=== PATIENT | male | born 1995 | race Caucasian/White ===

== ENCOUNTER 2018-03-31 23:12 | Emergency (ER) | payer OTHER ==
[2018-03-31 23:38] VITALS: RESP 18
[2018-04-01] MEDS ORDERED: LABETALOL 5 MG/ML VIAL MDV IVP STA ×2 (01:07→03:14)
[2018-04-01 01:18] LABS: Basophils % (A) 0 %; Eosinophils # (A) 0.1 k/uL (0-0.7); Eosinophils % (A) 1 %; HCT 42.7 % (39.0-53.0); HGB 14.7 gm/dL (13.0-17.5); Lymphocytes # (A) 1.8 k/uL (1.0-4.8); Lymphocytes % (A) 18 %; MCH 28.5 pg (25.0-35.0); MCHC 34.5 g/dL (31.0-37.0); MCV 82.7 fL (80.0-100.0); Mean Platelet Volume 7.9; Monocytes # (A) 0.7 k/uL (0-1.0); Monocytes % (A) 7 %; Neutrophils % (A) 72 %; Platelet Count 230 k/uL (150-450); RBC 5.17 m/uL (4.30-5.90); RDW 12.8 % (11.5-15.5); WBC 9.7 k/uL (3.8-10.6)
[2018-04-01 01:24] LABS: ALT 30 U/L (21-72); AST 24 U/L (17-59); Albumin 4.4 g/dL (3.5-5.0); Alkaline Phosphatase 83 U/L (38-126); Anion Gap 12 mmol/L; Blood Urea Nitrogen 9 mg/dL (9-20); Calcium 9.7 mg/dL (8.4-10.2); Carbon Dioxide 27 mmol/L (22-30); Chloride 103 mmol/L (98-107); Glucose 93 mg/dL (74-99); Potassium 4.3 mmol/L (3.5-5.1); Sodium 142 mmol/L (137-145); Total Bilirubin 0.6 mg/dL (0.2-1.3); Total Protein 7.5 g/dL (6.3-8.2)
[2018-04-01 01:29] LABS: D-Dimer <0.17 mg/L FEU (<0.60); INR 1.1 (<1.2); Prothrombin Time 10.9 sec (9.0-12.0)
[2018-04-01 01:39] LABS: Appearance,Urine Clear (Clear); Bilirubin,Urine Negative (Negative); Blood,Urine Negative (Negative); Color,Urine Light Yellow; Glucose,Urine (UA) Negative (Negative); Ketones,Urine Negative (Negative); Leukocyte Esterase,Urine Negative (Negative); Nitrite,Urine Negative (Negative); PH, Urine 7.5 (5.0-8.0); Protein,Urine Negative (Negative); Specific Gravity,Urine 1.005 (1.001-1.035); Urobilinogen,Urine <2.0 mg/dL (<2.0)
[2018-04-01 01:43] LABS: Creatine Kinase 203 U/L (55-170)
--- NOTE | 2018-04-01 01:54 | XR ---
EXAMINATION TYPE: XR chest 2V DATE OF EXAM: 04/01/2018 COMPARISON: 05/19/2014 HISTORY: Chest pain TECHNIQUE: Frontal and lateral views of the chest are obtained. FINDINGS: Heart and mediastinum are normal. Lungs are clear. Diaphragm is normal. Bony thorax is int act. There are chest leads. IMPRESSION: Normal chest. No change.
[2018-04-01 01:55] LABS: Creatine Kinase MB 1.7 ng/mL (0.0-2.4); Troponin I <0.012 ng/mL (0.000-0.034)
[2018-04-01 01:59] LABS: Amphetamine Screen,Urine Not Detected (NotDetected); Barbiturate Screen,Urine Not Detected (NotDetected); Benzodiazepines Screen,Urine Not Detected (NotDetected); Cocaine Screen,Urine Not Detected (NotDetected); Methadone Screen, Urine Not Detected (NotDetected); Opiate Screen,Urine Not Detected (NotDetected); Oxycodone Screen, Urine Not Detected (NotDetected); Phencyclidine Screen,Urine Not Detected (NotDetected); Tricyclic Antidepressant,Urine Not Detected (NotDetected); Urn Cannabinoid Scrn Not Detected (NotDetected)
[2018-04-01] MEDS ORDERED: KETOROLAC 30 MG/ML 1 ML VIAL IVP STA (02:02)
--- NOTE | 2018-04-01 02:58 | ED ---
Chest Pain HPI - General Chief Complaint: Chest Pain Stated Complaint: Chest pain Time Seen by Provider: 04/01/18 00:35 Source: patient Mode of arrival: ambulatory Limitations: no limitations - History of Present Illness Initial Comments: 22-year-old male patient presented to the emergency department today for evaluation of chest pain with inspiration and swallowing. Patient states this started this morning. Patient denies any shortness of breath with this. Denies any sweats, nausea, dizziness, or weakness. He states he was doing some exercises yesterday including pull-ups and leg raises. States he doesn't generally do this type of physical activity. Patient does have a history of hypertension, diagnosed 4 years ago. States he has not had insurance so he has not had any blood pressure medication. Patient states that he occasionally does get headaches but denies any blurred or double vision. Denies any recent long car rides or travel. Denies any leg pain or swelling. Patient denies any recent rash, fever, chills, cough, congestion, abdominal pain, vomiting, diarrhea, constipation, back pain, numbness, tingling, hematuria, dysuria, urinary urgency, urinary frequency, or any other complaints. - Related Data Previous Rx's Medication Instructions Recorded amLODIPine [Norvasc] 5 mg PO DAILY #30 tab 04/01/18 Allergies Allergy/AdvReac Type Severity Reaction Status Date / Time No Known Allergies Allergy Verified 03/31/18 23:38 Review of Systems ROS Statement: Those systems with pertinent positive or pertinent negative responses have been documented in the HPI. ROS Other: All systems not noted in ROS Statement are negative. EKG Findings - EKG Comments: EKG Findings:: EKG obtained at 2331 shows sinus rhythm with a short KS interval. Ventricular rate is 89, KS interval 110, QRS Duration 98, QT 348, QTC 423. No evidence of ST elevation or depression. Past Medical History Past Medical History: Hypertension History of Any Multi-Drug Resistant Organisms: None Reported Past Surgical History: No Surgical Hx Reported Past Psychological History: No Psychological Hx Reported Smoking Status: Former smoker Past Alcohol Use History: Occasional Past Drug Use History: None Reported General Exam Limitations: no limitations General appearance: alert, in no apparent distress, other (This is a well- developed, well-nourished adult male patient in no acute distress. Vital signs upon presentation are temperature 98.2F, pulse 101, respirations 18, blood pressure 203/132, pulse ox 95% on room air.) Eye exam: Present: normal appearance, PERRL, EOMI. Absent: scleral icterus, conjunctival injection, periorbital swelling ENT exam: Present: normal exam, normal oropharynx, mucous membranes moist Respiratory exam: Present: normal lung sounds bilaterally. Absent: respiratory distress, wheezes, rales, rhonchi, stridor, chest wall tenderness Cardiovascular Exam: Present: normal rhythm, tachycardia, normal heart sounds. Absent: systolic murmur, diastolic murmur, rubs, gallop, clicks GI/Abdominal exam: Present: soft, normal bowel sounds. Absent: distended, tenderness, guarding, rebound, rigid Neurological exam: Present: alert, oriented X3, CN II-XII intact Psychiatric exam: Present: normal affect, normal mood Skin exam: Present: warm, dry, intact, normal color. Absent: rash Course Vital Signs 03/31/18 04/01/18 04/01/18 23:36 00:17 01:06 Temperature 98.2 F Pulse Rate 101 H 82 Pulse Rate [ 88 Electrician Master ] Respiratory 18 18 Rate Blood Pressure 203/132 177/134 O2 Sat by Pulse 95 98 Oximetry 04/01/18 04/01/18 04/01/18 02:18 03:37 04:04 Temperature 97.3 F L Pulse Rate 74 68 75 Pulse Rate [ Electrician Master ] Respiratory 18 18 18 Rate Blood Pressure 161/102 160/113 157/105 O2 Sat by Pulse 98 99 96 Oximetry Chest Pain [facility]:Two-view x-ray of the chest is obtained. Heart and mediastinum are normal. Lungs are clear. Diaphragm is normal. Bony thorax is intact. There are chest leads. Impression by Dr. Manuel shows normal chest with no change. MDM: 22-year-old male patient with past medical history significant for untreated hypertension presented to the emergency department today for complaints of chest pain with deep breathing, swallowing, and yawning. Physical examination is unremarkable. Lungs are clear to auscultation with good air movement. Chest x-ray shows no acute cardiopulmonary process. EKG showed sinus rhythm with a short KS. Labs reviewed and are unremarkable. Patient did have significantly elevated blood pressure while here in the department. He did receive labetalol IV push. We did give an oral dose of Norvasc. I did discuss findings and results with the patient. We did discuss that his chest pain could be related to muscle strain from performing vigorous physical activity the day before. He is instructed to take ibuprofen for pain control. We will give prescription for Norvasc to go home with he is instructed to follow-up with both cardiology and with the [facility] for further evaluation and monitoring of the blood pressure. Return parameters were discussed in detail. He verbalizes understanding and agrees this plan. Disposition Clinical Impression: Hypertension, Chest wall pain Disposition: HOME SELF-CARE Condition: Good Instructions: Hypertension (ED), Chest Wall Pain (ED) Additional Instructions: Follow-up with cardiology as soon as possible. Take blood pressure medication as directed. Return here immediately for any new, worsening, or concerning symptoms. Follow-up with [facility] for futher evaluation in 1-2 days. Prescriptions: amLODIPine [Norvasc] 5 mg PO DAILY #30 tab Is patient prescribed a controlled substance at d/c from ED?: No Referrals: [facility] [Provider Group] - 1-2 days Time of Disposition: 03:58
[2018-04-01] MEDS ORDERED: amLODIPine 5 MG TAB PO STA (03:14)
[2018-04-01 04:05] VITALS: BP 157/105; PULSE 75; TEMP 97.3
== END 2018-04-01 04:05 | disposition home or self-care (01) ==
LOC: EC 23:12
DX: R07.89 Other chest pain (principal); I10 Essential (primary) hypertension; Z87.891 Personal history of nicotine dependence
CPT/HCPCS: 36415; 93005; 85379; 80053; 82550; 82553; 83735; 84484; 85025; 85610; 85730; 81003; 80306; 71046; 99285; 96374; 96375; 96376; J1885

== ENCOUNTER 2023-03-16 12:08 | Emergency (ER) | payer OTHER ==
[2023-03-16 12:37] VITALS: TEMP 98.1
--- NOTE | 2023-03-16 13:59 | ED ---
General Adult HPI - General Chief complaint: Shortness of Breath Stated complaint: Chest Pain SOB Time Seen by Provider: 03/16/23 13:43 Source: patient, RN notes reviewed, old records reviewed Mode of arrival: ambulatory Limitations: no limitations - History of Present Illness Initial comments: Nontoxic-appearing 27-year-old male presents to the emergency room with complaints of shortness of breath with sharp chest pain and increased heart rate that occurred yesterday around 5 PM. Patient states symptoms started upon standing and he became lightheaded and dizzy. States that he did not pass out. Symptoms lasted approximately 20 minutes but the chest pain lasted approximately an hour and was sharp in nature. Denies any diaphoresis. No nausea vomiting or diarrhea. No fevers. States that his fingers did feel tingly and looked pale. Patient does have a history of hypertension and is taking amlodipine and losartan for the past 2 years. Did take his meds yesterday at noon. No recent medication changes. Chest pain is resolved at this time. Patient states stopped vaping recently states is now a nonsmoker. -: days(s) (2) Location: chest Radiation: non-radiation Severity scale (1-10): 0 Consistency: now resolved, other (sharp) Associated Symptoms: chest pain, loss of appetite, shortness of breath, other (lightneaded) Treatments Prior to Arrival: none - Related Data Previous Rx's Medication Instructions Recorded amLODIPine [Norvasc] 5 mg PO DAILY #30 tab 04/01/18 Allergies Allergy/AdvReac Type Severity Reaction Status Date / Time No Known Allergies Allergy Verified 03/31/18 23:38 Review of Systems ROS Statement: Those systems with pertinent positive or pertinent negative responses have been documented in the HPI. ROS Other: All systems not noted in ROS Statement are negative. Past Medical History Past Medical History: Hypertension History of Any Multi-Drug Resistant Organisms: None Reported Past Surgical History: No Surgical Hx Reported Past Psychological History: No Psychological Hx Reported Smoking Status: Former smoker Past Alcohol Use History: Occasional Past Drug Use History: None Reported General Exam Limitations: no limitations General appearance: alert, in no apparent distress Head exam: Present: atraumatic Eye exam: Present: normal appearance. Absent: scleral icterus, conjunctival injection, periorbital swelling ENT exam: Present: mucous membranes moist Neck exam: Present: full ROM. Absent: tenderness, meningismus Respiratory exam: Present: normal lung sounds bilaterally. Absent: respiratory distress, accessory muscle use Cardiovascular Exam: Present: tachycardia GI/Abdominal exam: Present: soft Extremities exam: Present: normal capillary refill. Absent: tenderness, pedal edema Back exam: Present: normal inspection. Absent: tenderness, CVA tenderness (R), CVA tenderness (L), paraspinal tenderness, vertebral tenderness, rash noted Neurological exam: Present: alert, oriented X3 Psychiatric exam: Present: normal affect, normal mood Skin exam: Present: warm, dry, normal color. Absent: cyanosis, diaphoretic, petechiae, pallor, mottled Course Vital Signs 03/16/23 03/16/23 03/16/23 12:34 13:46 13:59 Temperature 98.1 F Pulse Rate 105 H 89 Pulse Rate [ 89 Printing Machine Operator Tape Rules ] Respiratory 18 20 Rate Blood Pressure 160/79 147/92 Blood Pressure [Right Arm Sitting] Blood Pressure [Right Arm Standing] Blood Pressure [Right Arm Supine] O2 Sat by Pulse 100 100 Oximetry 03/16/23 03/16/23 03/16/23 14:00 14:02 14:04 Temperature Pulse Rate Pulse Rate [ 96 98 105 H Printing Machine Operator Tape Rules ] Respiratory 16 17 18 Rate Blood Pressure Blood Pressure 141/91 [Right Arm Sitting] Blood Pressure 131/100 [Right Arm Standing] Blood Pressure 136/87 [Right Arm Supine] O2 Sat by Pulse 100 100 100 Oximetry 03/16/23 15:45 Temperature Pulse Rate 104 H Pulse Rate [ Printing Machine Operator Tape Rules ] Respiratory 18 Rate Blood Pressure 147/95 Blood Pressure [Right Arm Sitting] Blood Pressure [Right Arm Standing] Blood Pressure [Right Arm Supine] O2 Sat by Pulse 100 Oximetry EKG Findings - EKG Results: EKG: interpreted by ERMD, sinus rhythm (EKG interpreted by me shows sinus rhythm with a ventricular rate of 91, AZ interval 0.113, QRS 0.102, QTC 0.388, normal axis) Medical Decision Making - Medical Decision Making Was pt. sent in by a medical professional or institution (, PA, HUMAN FACTORS ERGONOMIST, urgent care, hospital, or fdc...) When possible be specific @ -No Did you speak to anyone other than the patient for history (EMS, parent, family, police, friend...)? What history was obtained from this source @ -No Did you review nursing and triage notes (agree or disagree)? Why? @ -I reviewed and agree with nursing and triage notes Were old charts reviewed (outside hosp., previous admission, EMS record, old EKG, old radiological studies, urgent care reports/EKG's, fdc records)? Report findings @ -No old charts were reviewed Differential Diagnosis (chest pain, altered mental status, abdominal pain women, abdominal pain men, vaginal bleeding, weakness, fever, dyspnea, syncope, hea dache, dizziness, GI bleed, back pain, seizure, CVA, palpatations, mental health, musculoskeletal)? @ -Differential Chest Pain: Stable Angina, Unstable Angina, STEMI, NSTEMI Aortic Dissection, Pneumothorax, Musculoskeletal, Esophageal Spasm GERD, Cholecystitis, Pancreatitis, Zoster, this is not meant to be an all-inclusive list. EKG interpreted by me (3pts min.). @ -yes EKG interpreted by me shows sinus rhythm with a ventricular rate of 91, AZ interval 0.113, QRS 0.102, QTC 0.388, normal axis X-rays interpreted by me (1pt min.). @ -Chest x-ray interpreted by me shows no evidence of focal consolidation. No free air. Cardiac silhouette within normal size. CT interpreted by me (1pt min.). @ -None done U/S interpreted by me (1pt. min.). @ -None done What testing was considered but not performed or refused? (CT, X-rays, U/S, labs)? Why? @ -None What meds were considered but not given or refused? Why? @ -None Did you discuss the management of the patient with other professionals (professionals i.e. , PA, HUMAN FACTORS ERGONOMIST, lab, RT, psych nurse, child welfare social worker, cytotechnologist/histotechnologist, teacher, learning officer, wrapper caser)? Give summary @ -No Was smoking cessation discussed for >3mins.? @ -No Was critical care preformed (if so, how long)? @ -No Were there social determinants of health that impacted care today? How? (Homelessness, low income, unemployed, alcoholism, drug addiction, transportation, low edu. Level, literacy, decrease access to med. care, fpc, rehab)? @ -No Was there de-escalation of care discussed even if they declined (Discuss DNR or withdrawal of care, Hospice)? DNR status @ -No What co-morbidities impacted this encounter? (DM, HTN, Smoking, COPD, CAD, Cancer, CVA, ARF, Chemo, Hep., AIDS, mental health diagnosis, sleep apnea, morbid obesity)? @ -Hypertension Was patient admitted / discharged? Hospital course, mention meds given and route, prescriptions, significant lab abnormalities, going to OR and other pertinent info. @ -Discharged Nontoxic-appearing 27-year-old male presents to the emergency room with complaints of shortness of breath with sharp chest pain and increased heart rate that occurred yesterday around 5 PM. Patient states symptoms started upon standing and he became lightheaded and dizzy. States that he did not pass out. Symptoms lasted approximately 20 minutes but the chest pain lasted approximately an hour and was sharp in nature. Denies any diaphoresis. No nausea vomiting or diarrhea. No fevers. States that his fingers did feel tingly and looked pale. Patient does have a history of hypertension and is taking amlodipine and losartan for the past 2 years. Did take his meds yesterday at noon. No recent medication changes. Chest pain is resolved at this time. Patient states stopped vaping recently states is now a nonsmoker. CBC and electrolytes are unremarkable. D-dimer is negative. Troponin -0.012 . Chest x-ray interpreted by me shows no evidence of focal consolidation. No free air. Cardiac silhouette within normal size. Radiologist interpretation no acute process. Orthostatics negative. Patient was given IV fluids and Zofran. Has had no further chest pain, difficulty in breathing or dizziness. Patient is pain-free at this time. Heart score low. Symptoms may be orthostatic in nature as patient says he has had a decreased appetite and decreased fluid intake. He was encouraged to increase his fluid intake and follow-up with his primary care doctor. Return with any new or co ncerning symptoms. He is to this plan of care. Case discussed Dr. Srinivasan. Undiagnosed new problem with uncertain prognosis? @ -No Drug Therapy requiring intensive monitoring for toxicity (Heparin, Nitro, Insulin, Cardizem)? @ -No Were any procedures done? @ -No Diagnosis/symptom? @ -Atypical chest pain Acute, or Chronic, or Acute on Chronic? @ -Acute Uncomplicated (without systemic symptoms) or Complicated (systemic symptoms)? @ -Uncomplicated Side effects of treatment? @ -No Exacerbation, Progression, or Severe Exacerbation? @ -No Poses a threat to life or bodily function? How? (Chest pain, [place], [place], pneumonia, PE, COPD, DKA, ARF, appy, cholecystitis, CVA, Diverticulitis, Homicidal, Suicidal, threat to staff... and all critical care pts) @ -No - Lab Data Result diagrams: 03/16/23 14:01 03/16/23 14:01 Lab Results 03/16/23 03/16/23 03/16/23 Range/Units 14:01 14:01 14:01 WBC 7.6 (3.8-10.6) k/uL RBC 5.67 (4.30-5.90) m/uL Hgb 16.3 (13.0-17.5) gm/dL Hct 47.3 (39.0-53.0) % MCV 83.4 (80.0-100.0) fL MCH 28.7 (25.0-35.0) pg MCHC 34.4 (31.0-37.0) g/dL RDW 12.8 (11.5-15.5) % Plt Count 315 (150-450) k/uL MPV 8.0 Neutrophils % 77 % Lymphocytes % 14 % Monocytes % 7 % Eosinophils % 1 % Basophils % 1 % Neutrophils # 5.8 (1.3-7.7) k/uL Lymphocytes # 1.0 (1.0-4.8) k/uL Monocytes # 0.5 (0-1.0) k/uL Eosinophils # 0.1 (0-0.7) k/uL Basophils # 0.0 (0-0.2) k/uL PT 10.3 (9.0-12.0) sec INR 1.0 (<1.2) APTT 26.3 (22.0-30.0) sec D-Dimer <0.17 (<0.60) mg/L FEU Sodium 140 (137-145) mmol/L Potassium 4.8 (3.5-5.1) mmol/L Chloride 104 (98-107) mmol/L Carbon Dioxide 27 (22-30) mmol/L Anion Gap 9 mmol/L BUN 11 (9-20) mg/dL Creatinine 1.05 (0.66-1.25) mg/dL Est GFR (CKD-EPI)AfAm >90 (>60 ml/min/1.73 sqM) Est GFR (CKD-EPI)NonAf >90 (>60 ml/min/1.73 sqM) Glucose 94 (74-99) mg/dL Calcium 9.6 (8.4-10.2) mg/dL Total Bilirubin 0.7 (0.2-1.3) mg/dL AST 47 (17-59) U/L ALT 71 H (4-49) U/L Alkaline Phosphatase 114 (38-126) U/L Troponin I (0.000-0.034) ng/mL Total Protein 8.5 H (6.3-8.2) g/dL Albumin 4.9 (3.5-5.0) g/dL 03/16/23 Range/Units 14:01 WBC (3.8-10.6) k/uL RBC (4.30-5.90) m/uL Hgb (13.0-17.5) gm/dL Hct (39.0-53.0) % MCV (80.0-100.0) fL MCH (25.0-35.0) pg MCHC (31.0-37.0) g/dL RDW (11.5-15.5) % Plt Count (150-450) k/uL MPV Neutrophils % % Lymphocytes % % Monocytes % % Eosinophils % % Basophils % % Neutrophils # (1.3-7.7) k/uL Lymphocytes # (1.0-4.8) k/uL Monocytes # (0-1.0) k/uL Eosinophils # (0-0.7) k/uL Basophils # (0-0.2) k/uL PT (9.0-12.0) sec INR (<1.2) APTT (22.0-30.0) sec D-Dimer (<0.60) mg/L FEU Sodium (137-145) mmol/L Potassium (3.5-5.1) mmol/L Chloride (98-107) mmol/L Carbon Dioxide (22-30) mmol/L Anion Gap mmol/L BUN (9-20) mg/dL Creatinine (0.66-1.25) mg/dL Est GFR (CKD-EPI)AfAm (>60 ml/min/1.73 sqM) Est GFR (CKD-EPI)NonAf (>60 ml/min/1.73 sqM) Glucose (74-99) mg/dL Calcium (8.4-10.2) mg/dL Total Bilirubin (0.2-1.3) mg/dL AST (17-59) U/L ALT (4-49) U/L Alkaline Phosphatase (38-126) U/L Troponin I <0.012 (0.000-0.034) ng/mL Total Protein (6.3-8.2) g/dL Albumin (3.5-5.0) g/dL Disposition Clinical Impression: Atypical chest pain Disposition: HOME SELF-CARE Condition: Good Instructions (If sedation given, give patient instructions): Chest Pain (ED) Additional Instructions: Continue taking your medications as prescribed. Follow-up with your primary care doctor next week. Return to emergency room with any new or concerning symptoms. Is patient prescribed a controlled substance at d/c from ED?: No Referrals: Raf Hoffman MD [Primary Care Provider] - 1-2 days Time of Disposition: 15:17
[2023-03-16 14:10] LABS: Basophils % (A) 1 %; Eosinophils # (A) 0.1 k/uL (0-0.7); Eosinophils % (A) 1 %; HCT 47.3 % (39.0-53.0); HGB 16.3 gm/dL (13.0-17.5); Lymphocytes % (A) 14 %; MCH 28.7 pg (25.0-35.0); MCHC 34.4 g/dL (31.0-37.0); MCV 83.4 fL (80.0-100.0); Monocytes # (A) 0.5 k/uL (0-1.0); Monocytes % (A) 7 %; Neutrophils # (A) 5.8 k/uL (1.3-7.7); Neutrophils % (A) 77 %; Platelet Count 315 k/uL (150-450); RBC 5.67 m/uL (4.30-5.90); RDW 12.8 % (11.5-15.5); WBC 7.6 k/uL (3.8-10.6)
[2023-03-16 14:18] VITALS: RESP 18
[2023-03-16 14:20] LABS: ALT 71 U/L (4-49); AST 47 U/L (17-59); African American GFR (CKD) >90 (>60 ml/min/1.73 sqM); Albumin 4.9 g/dL (3.5-5.0); Alkaline Phosphatase 114 U/L (38-126); Anion Gap 9 mmol/L; Blood Urea Nitrogen 11 mg/dL (9-20); Calcium 9.6 mg/dL (8.4-10.2); Carbon Dioxide 27 mmol/L (22-30); Chloride 104 mmol/L (98-107); Glucose 94 mg/dL (74-99); Non-African American GFR(CKD) >90 (>60 ml/min/1.73 sqM); Potassium 4.8 mmol/L (3.5-5.1); Sodium 140 mmol/L (137-145); Total Bilirubin 0.7 mg/dL (0.2-1.3); Total Protein 8.5 g/dL (6.3-8.2)
[2023-03-16 14:25] LABS: Partial Thromboplastin Time 26.3 sec (22.0-30.0); Prothrombin Time 10.3 sec (9.0-12.0)
--- NOTE | 2023-03-16 14:47 | XR ---
EXAMINATION TYPE: XR chest 2V DATE OF EXAM: 03/16/2023 COMPARISON: 04/01/2018 TECHNIQUE: PA and lateral views submitted. HISTORY: Chest pain FINDINGS: The lungs are clear and there is no pneumothorax, pleural effusion, or focal pneumonia. Heart size normal and no overt failure. Osseous structures intact. IMPRESSION: 1. No acute process.
[2023-03-16 15:46] VITALS: BP 147/95; PULSE 104
== END 2023-03-16 15:51 | disposition home or self-care (01) ==
LOC: EC 12:08
DX: R07.89 Other chest pain (principal); I10 Essential (primary) hypertension; Z87.891 Personal history of nicotine dependence
CPT/HCPCS: 36415; 71046; 80053; 84484; 85025; 85379; 85610; 85730; 93005; 99285